=== PATIENT | male | born 1955 | race Caucasian/White ===

== ENCOUNTER 2018-07-06 06:51 | Day surgery (SDC) | payer OTHER ==
[~2018-07-06] VITALS: Ht 167.6 cm; Wt 121.0 kg
[~2018-07-06 06:51] MED LIST: /HCTZ25TA PO; /METO25TAB GT; AMLO5TAB6 PO; ATOR80TA59 PO; BUSP5TA PO; CLON0.2T PO; DOCU10ELUD PO; EC-881TA PO; HYDR25TAB PO; LABE10TAB PO; LISI-538 PO; LISI40TA PO; METO100T5 PO; NITR0.4D SL; NITR0.4S14 SL; NS 1,000 ML IV ONE; PANT40TA3 PO; TRAM50TA2 PO; TYLE325T5 PO; ZEST20TA8 PO
[2018-07-06] MEDS ORDERED: PROPOFOL 200 MG/20 ML VIAL As Ordered ONE (08:19)
[2018-07-06] MEDS ORDERED: LIDOCAINE 2% INJ 100 MG/5 ML SDV (FOR ANES.) As Ordered ONE (08:19)
--- NOTE | 2018-07-06 08:50 | ROOR ---
Patient Name: Geronimo Wilson Procedure Date: 07/06/2018 8:29 AM Date of : 1955 Age: 63 Room: [facility] Gender: Male Note Status: Finalized Procedure: Colonoscopy Indications: Screening for colorectal malignant neoplasm Providers: DO Junito Coffman MD: [facility], Admin. Requesting Provider: Medicines: Propofol per Anesthesia Complications: No immediate complications. Procedure: Pre-Anesthesia Assessment: - Prior to the procedure, a History and Physical was performed, and patient medications and allergies were reviewed. The patient is competent. The risks and benefits of the procedure and the sedation options and risks were discussed with the patient. All questions were answered and informed consent was obtained. Patient identification and proposed procedure were verified by the physician, the nurse, the clasp machine operator and the certified technician specialist in the endoscopy suite. Mental Status Examination: alert and oriented. Airway Examination: normal oropharyngeal airway and neck mobility. Respiratory Examination: clear to auscultation. CV Examination: normal. Prophylactic Antibiotics: The patient does not require prophylactic antibiotics. Prior Anticoagulants: The patient has taken no previous anticoagulant or antiplatelet agents. ASA Grade Assessment: II - A patient with mild systemic disease. After reviewing the risks and benefits, the patient was deemed in satisfactory condition to undergo the procedure. The anesthesia plan was to use monitored anesthesia care (MAC). Immediately prior to administration of medications, the patient was re-assessed for adequacy to receive sedatives. The heart rate, respiratory rate, oxygen saturations, blood pressure, adequacy of pulmonary ventilation, and response to care were monitored throughout the procedure. The physical status of the patient was re-assessed after the procedure. The Colonoscope was introduced through the anus and advanced to the cecum, identified by appendiceal orifice and ileocecal valve. The colonoscopy was performed without difficulty. The patient tolerated the procedure well. Findings: The perianal exam findings include non-thrombosed internal hemorrhoids and internal hemorrhoids that prolapse with straining, but spontaneously regress to the resting position (Grade II). A less than 5 mm polyp was found in the sigmoid colon. The polyp was hyperplastic. The polyp was removed with a jumbo cold forceps. Resection and retrieval were complete. Estimated blood loss was minimal. A 17 mm polyp was found in the sigmoid colon. The polyp was semi-pedunculated. The polyp was removed with a hot snare. Resection and retrieval were complete. Estimated blood loss was minimal. The exam was otherwise without abnormality on direct and retroflexion views. Impression: - Non-thrombosed internal hemorrhoids and internal hemorrhoids that prolapse with straining, but spontaneously regress to the resting position (Grade II) found on perianal exam. - One less than 5 mm polyp in the sigmoid colon, removed with a jumbo cold forceps. Resected and retrieved. - One 17 mm polyp in the sigmoid colon, removed with a hot snare. Resected and retrieved. - The examination was otherwise normal on direct and retroflexion views. Recommendation: - Patient has a contact number available for emergencies. The signs and symptoms of potential delayed complications were discussed with the patient. Return to normal activities tomorrow. Written discharge instructions were provided to the patient. - Repeat colonoscopy in 5-10 years for surveillance based on pathology results. - Return to my office PRN. - Telephone my office for pathology results in 1 week. Yemi Reeder DO 07/06/2018 8:49:30 AM This report has been signed electronically. Number of Addenda: 0 Note Initiated On: 07/06/2018 8:29 AM Estimated Blood Loss: Estimated blood loss was minimal.
[2018-07-06 09:14] VITALS: BP 188/87
== END 2018-07-06 09:23 | disposition home or self-care (01) ==
LOC: M OPP 06:51
PROVIDERS: ATTEND Surgery
DX: Z12.11 Encounter for screening for malignant neoplasm of colon (principal); K64.1 Second degree hemorrhoids; D12.5 Benign neoplasm of sigmoid colon; I10 Essential (primary) hypertension; E11.9 Type 2 diabetes mellitus without complications; J44.9 Chronic obstructive pulmonary disease, unspecified; G47.30 Sleep apnea, unspecified; Z79.899 Other long term (current) drug therapy; Z79.891 Long term (current) use of opiate analgesic; Z87.891 Personal history of nicotine dependence

== ENCOUNTER 2018-11-22 18:27 | Emergency (ER) | payer OTHER ==
[~2018-11-22] VITALS: Ht 165.1 cm; Wt 120.5 kg
[~2018-11-22 18:27] MED LIST changes: -/HCTZ25TA PO; -/METO25TAB GT; -DOCU10ELUD PO; +DOCU5LIQ PO; +HYDR-3644 PO; +METO1TAB87 GT; -NS 1,000 ML IV ONE
[2018-11-22] MEDS ORDERED: NITROGLYCERIN 0.4 MG SUBL TABLET SL PRN (18:45)
[2018-11-22] MEDS ORDERED: GI COCKTAIL 50ML BTL(HYOSCYAMINE/MAALOX/LIDOCAINE VISCOUS)(1:3:1) PO ONE (18:45)
[2018-11-22] MEDS ORDERED: NAPR500T6 PO (18:54)
[2018-11-22 19:07] LABS: BASO # 0.1 10^3/uL (0.0-0.2); BASO % 0.7 % (0.0-1.0); EOS # 0.4 10^3/uL (0.0-0.50); EOS % 4.4 % (0.0-3.0); HEMOGLOBIN 15.7 g/dl (13.5-17.5); LYMPH # 1.7 10^3/uL (1.5-4.5); LYMPH % 19.6 % (24.0-44.0); MEAN CORPUSCULAR HEMOGLOBIN 29.6 pg (27.0-33.0); MEAN CORPUSCULAR HGB CONC 32.7 g/dl (32.0-36.5); MEAN CORPUSCULAR VOLUME 90.4 fl (80.0-96.0); MONO # 1.1 10^3/uL (0.0-0.8); MONO % 12.3 % (0.0-5.0); NEUTROPHILS # 5.6 10^3/uL (1.8-7.7); NEUTROPHILS % 62.5 % (36.0-66.0); PLATELET COUNT, AUTOMATED 173 10^3/uL (150-450); RED BLOOD COUNT 5.31 10^6/uL (4.30-6.10); WHITE BLOOD COUNT 8.9 10^3/uL (4.0-10.0)
--- NOTE | 2018-11-22 19:14 | REP ---
Clinical: Acute chest pain . Comparison: 03/01/2014 . Findings: The mediastinum and cardiac silhouette are stable and within normal limits for portable technique. The lung manzano are clear without acute consolidation, effusion, or pneumothorax. Skeletal structures are intact. Impression: No acute cardiopulmonary process appreciated. Electronically Signed by Holger Becker MD 11/22/2018 07:06 P
[2018-11-22 19:37] LABS: ALBUMIN 3.9 GM/DL (3.2-5.2); ALT/SGPT 29 U/L (12-78); BILIRUBIN,DIRECT 0.1 MG/DL (0.0-0.2); BILIRUBIN,TOTAL 0.5 MG/DL (0.2-1.0); BLOOD UREA NITROGEN 19 MG/DL (7-18); CARBON DIOXIDE LEVEL 28 MEQ/L (21-32); CHLORIDE LEVEL 104 MEQ/L (98-107); CPK CREATINE PHOSPHOKINASE 189 U/L (39-308); CREATININE FOR GFR 0.99 MG/DL (0.70-1.30); GLOMERULAR FILTRATION RATE > 60.0 (>49); GLUCOSE, FASTING 113 MG/DL (70-100); MB/CK RELATIVE INDEX 2.28 (< OR =4); POTASSIUM SERUM 3.8 MEQ/L (3.5-5.1); SODIUM LEVEL 139 MEQ/L (136-145); TOTAL PROTEIN 6.7 GM/DL (6.4-8.2); TROPONIN I 0.26 NG/ML (< 0.10)
[2018-11-22 19:38] LABS: LIPASE 93 U/L (73-393); NT-PRO BNP 191 PG/ML (<125)
[2018-11-22] MEDS ORDERED: HEPARIN DRIP 25,000 UNITS in APPROPRIATE DILUENT 1 EA IV SCH (20:10)
[2018-11-22] MEDS ORDERED: CLOPIDOGREL 300 MG TAB (PLAVIX) PO ONE (20:15)
[2018-11-22] MEDS ORDERED: HEPARIN SOD (PORCINE) 5000 UNITS/ML VIAL IV ONE (20:15)
[2018-11-22] MEDS ORDERED: ASPIRIN 81 MG CHEW TABLET PO ONE (20:15)
[2018-11-22] MEDS ORDERED: NITROGLYCERIN 2% OINT 1 GM *U/D* PKT TOP ONE (20:30)
[2018-11-22 22:05] LABS: INR 1.44; PROTHROMBIN TIME 17.8 SECONDS (12.1-14.4)
[2018-11-22 22:30] VITALS: BP 125/69
[2018-11-22 22:45] LABS: PARTIAL THROMBOPLASTIN TIME > 240.0 SECONDS (25.4-37.6)
--- NOTE | 2018-11-23 19:28 | ECGEPIP ---
[facility] - ED Test Date: 2018-11-22 Pat Name: COSME BUSTOS Department: Room: - Gender: Male [employer]: : 1955 Requested By: Lyubov Lala Order Number: [id number] Reading MD: Irvin Simon Measurements Intervals [place] Rate: 61 P: 34 MA: 201 QRS: 75 QRSD: 150 T: 21 QT: 480 QTc: 485 Interpretive Statements SINUS RHYTHM INTRAVENTRICULAR CONDUCTION DELAY prolonged QTc Tremor artifact Comparison tracing not on file Electronically Signed on 11-23-2018 19:28:30 EDT by Irvin Simon
== END 2018-11-22 23:08 | disposition short-term general hospital (02) ==
LOC: M ED 18:27 → EDBD 18:27 → M ED 23:08
DX: I21.4 Non-ST elevation (NSTEMI) myocardial infarction (principal); I10 Essential (primary) hypertension; Z79.899 Other long term (current) drug therapy; Z88.8 Allergy status to other drugs, medicaments and biological substances

== ENCOUNTER 2019-06-13 15:41 | Emergency (ER) | payer OTHER ==
[~2019-06-13] VITALS: Ht 167.6 cm; Wt 118.2 kg
[~2019-06-13 15:41] MED LIST changes: +NAPR500T6 PO
[2019-06-13] MEDS ORDERED: LABETALOL HCL 100 MG/20 ML VIAL IV STA (16:28)
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
[2019-06-13] MEDS ORDERED: MORPHINE 2 MG/ML 1ML VIAL (J2270) IV ONE (16:30)
[2019-06-13] MEDS ORDERED: NS 1,000 ML IV ONE (16:30)
[2019-06-13 16:52] VITALS: BP 187/112
[2019-06-13 17:02] LABS: HEMATOCRIT 49.2 % (42.0-52.0); HEMOGLOBIN 16.1 g/dl (13.5-17.5); MEAN CORPUSCULAR HEMOGLOBIN 29.4 pg (27.0-33.0); MEAN CORPUSCULAR HGB CONC 32.7 g/dl (32.0-36.5); MEAN CORPUSCULAR VOLUME 89.8 fl (80.0-96.0); PLATELET COUNT, AUTOMATED 152 10^3/uL (150-450); RED BLOOD COUNT 5.48 10^6/uL (4.30-6.10); WHITE BLOOD COUNT 8.8 10^3/uL (4.0-10.0)
[2019-06-13 17:46] LABS: BLOOD UREA NITROGEN 24 MG/DL (7-18); CALCIUM LEVEL 9.4 MG/DL (8.8-10.2); CARBON DIOXIDE LEVEL 30 MEQ/L (21-32); CHLORIDE LEVEL 105 MEQ/L (98-107); GLOMERULAR FILTRATION RATE > 60.0 (>49); GLUCOSE, FASTING 94 MG/DL (70-100); POTASSIUM SERUM 4.7 MEQ/L (3.5-5.1); SODIUM LEVEL 142 MEQ/L (136-145)
[2019-06-13] MEDS ORDERED: ISOVUE-370 76% 100ML VIAL (Q9967) As Ordered ONE (17:48)
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
[2019-06-13] MEDS ORDERED: NAPR-837 PO (19:07)
[2019-06-13 19:24] VITALS: BP 184/76
--- NOTE | 2019-06-14 08:07 | ECGEPIP ---
[facility] - ED Test Date: 2019-06-13 Pat Name: COSME BUSTOS Department: Room: - Gender: Male Meeting Facilitator: [facility] : 1955 Requested By: Lyubov Lala Order Number: [id number] Reading MD: Lyubov Lala Measurements Intervals [place] Rate: 105 P: 29 OR: 183 QRS: 70 QRSD: 146 T: -50 QT: 433 QTc: 573 Interpretive Statements SINUS TACHYCARDIA INTRAVENTRICULAR CONDUCTION DELAY PROLONGED QTC INCREASED RATE 11/22/18 Electronically Signed on 06-14-2019 8:07:07 EST by Lyubov Lala
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
== END 2019-06-13 19:28 | disposition home or self-care (01) ==
LOC: M ED 15:41 → EDBD 15:41 → M ED 19:28
DX: T14.8XXA Other injury of unspecified body region, initial encounter (principal); V49.49XA Driver injured in collision with other motor vehicles in traffic accident, initial encounter; Y92.410 Unspecified street and highway as the place of occurrence of the external cause; E27.9 Disorder of adrenal gland, unspecified; Z79.899 Other long term (current) drug therapy
CPT/HCPCS: 36415; 70450; 71260; 80048; 85027; 93005; 96374; 96375; 99284; J2270; Q9967

== ENCOUNTER 2022-11-16 12:17 | Emergency (ER) | payer MEDICARE, OTHER ==
[~2022-11-16] VITALS: Ht 167.6 cm; Wt 126.5 kg
[~2022-11-16 12:17] MED LIST changes: +AMLO1TAB24 PO; -AMLO5TAB6 PO; +HYDR-3490 PO; -HYDR25TAB PO; -LISI-538 PO; +LISI20TA33 PO; -LISI40TA PO; +LISI40TA4 PO; +NAPR-837 PO; +PANT40TA29 PO; -PANT40TA3 PO
[2022-11-16] MEDS ORDERED: GI COCKTAIL 50ML BTL(HYOSCYAMINE/MAALOX/LIDOCAINE VISCOUS)(1:3:1) PO ONE (13:20)
[2022-11-16] MEDS ORDERED: ASPIRIN 81MG CHEW TABLET PO ONE (13:20)
[2022-11-16] MEDS ORDERED: ISOVUE-370 76% 100ML VIAL As Ordered ONE (13:40)
[2022-11-16 13:52] LABS: BASO % 0.4 % (0.0-1.0); EOS # 0.1 10^3/uL (0.0-0.5); EOS % 1.9 % (0.0-3.0); HEMOGLOBIN 15.6 g/dl (13.5-17.5); LYMPH % 12.6 % (24.0-44.0); MEAN CORPUSCULAR HEMOGLOBIN 29.1 pg (27.0-33.0); MEAN CORPUSCULAR HGB CONC 32.5 g/dl (32.0-36.5); MEAN CORPUSCULAR VOLUME 89.6 fl (80.0-96.0); MONO # 0.7 10^3/uL (0.0-0.8); MONO % 9.7 % (2.0-8.0); NEUTROPHILS # 5.7 10^3/uL (1.5-8.5); NEUTROPHILS % 75.1 % (36.0-66.0); PLATELET COUNT, AUTOMATED 158 10^3/uL (150-450); RED BLOOD COUNT 5.36 10^6/uL (4.30-6.10); WHITE BLOOD COUNT 7.6 10^3/uL (4.0-10.0)
[2022-11-16 14:05] LABS: INR 1.14; PARTIAL THROMBOPLASTIN TIME 31.2 SECONDS (24.8-34.2); PROTHROMBIN TIME 14.8 SECONDS (12.5-14.5)
[2022-11-16 14:17] LABS: BLOOD UREA NITROGEN 17 MG/DL (9-23); CALCIUM LEVEL 9.2 MG/DL (8.3-10.6); CARBON DIOXIDE LEVEL 29 MMOL/L (20-31); CHLORIDE LEVEL 104 MMOL/L (98-107); CREATININE FOR GFR 1.02 MG/DL (0.70-1.30); GLOMERULAR FILTRATION RATE > 60.0 (>49); GLUCOSE, FASTING 115 MG/DL (74-106); MAGNESIUM LEVEL 1.7 MG/DL (1.8-2.4); POTASSIUM SERUM 4.6 MMOL/L (3.5-5.1); SODIUM LEVEL 141 MMOL/L (136-145)
[2022-11-16 14:18] LABS: ALBUMIN 3.9 G/DL (3.2-5.2); BILIRUBIN,DIRECT 0.2 MG/DL (<0.4); BILIRUBIN,TOTAL 0.6 MG/DL (0.3-1.2); CK-MB VALUE MASS 4.6 NG/ML (<3.6); TOTAL PROTEIN 6.8 G/DL (5.7-8.2)
[2022-11-16 14:22] LABS: FREE T4 1.17 NG/DL (0.89-1.76); THYROID STIMULATING HORMONE 2.125 uIU/ML (0.55-4.78)
[2022-11-16 14:24] LABS: CPK CREATINE PHOSPHOKINASE 260 U/L (46-171); MB/CK RELATIVE INDEX 1.76 (< OR =4)
[2022-11-16] MEDS ORDERED: NITROGLYCERIN 0.4MG SUBL TABLET SL PRN (14:30)
[2022-11-16 15:07] LABS: CK-MB VALUE MASS 5.1 NG/ML (<3.6)
[2022-11-16 15:11] LABS: MB/CK RELATIVE INDEX 2.08 (< OR =4)
[2022-11-16] MEDS ORDERED: HEPARIN SOD (PORCINE) 5000UNITS/ML 1ML VIAL/SYRINGE IV ONE (17:05)
[2022-11-16] MEDS ORDERED: HEPARIN DRIP 25,000 UNITS in IV 1 EA IV SCH ×2 (17:05→19:15)
[2022-11-16] MEDS ORDERED: NITROGLYCERIN 2% OINT 1 GM *U/D* PKT TOP ONE (17:05)
[2022-11-16 18:07] LABS: CK-MB VALUE MASS 4.7 NG/ML (<3.6)
[2022-11-16 18:12] LABS: MB/CK RELATIVE INDEX 2.08 (< OR =4)
[2022-11-16] MEDS ORDERED: METOPROLOL TARTRATE 100MG TAB PO ONE (19:15)
[2022-11-16] MEDS ORDERED: HEPARIN SOD (PORCINE) 5000UNITS/ML 1ML VIAL/SYRINGE IV PRN (19:15)
[2022-11-16 19:44] VITALS: BP 155/86
[2022-11-16] MEDS ORDERED: PANTOPRAZOLE 40MG VIAL IV SCH (21:00)
[2022-11-16] MEDS ORDERED: NS 1,000 ML IV SCH (21:05)
[2022-11-16] MEDS ORDERED: HYDROMORPHONE HCL 0.5 MG/ 0.5 ML SYRINGE IV PRN (21:05)
[2022-11-16] MEDS ORDERED: hydrALAZINE 20MG/ML 1ML VIAL IV PRN (21:10)
[2022-11-16] MEDS ORDERED: lisinopriL 40MG TAB PO ONE (21:20)
[2022-11-17 03:00] VITALS: BP 126/74
== END 2022-11-17 06:43 | disposition short-term general hospital (02) ==
LOC: M ED 12:17
DX: R79.89 Other specified abnormal findings of blood chemistry (principal); I44.1 Atrioventricular block, second degree; I10 Essential (primary) hypertension; E78.5 Hyperlipidemia, unspecified; J44.9 Chronic obstructive pulmonary disease, unspecified; K21.9 Gastro-esophageal reflux disease without esophagitis; Z87.891 Personal history of nicotine dependence; Z88.8 Allergy status to other drugs, medicaments and biological substances; Z79.899 Other long term (current) drug therapy
CPT/HCPCS: 71045; 71275; 74174; 80047; 80048; 80076; 81001; 82550; 82553; 83605; 83690; 83735; 83880; 84439; 84443; 84484; 85025; 85610; 85730; 87635; 93005; 93041; 94760; 96365; 96366; 96367; 96375; 99285; C9113; Q9967

== ENCOUNTER 2023-06-11 14:42 | Emergency (ER) | payer OTHER ==
[~2023-06-11] VITALS: Ht 167.6 cm; Wt 119.1 kg
[2023-06-11 14:53] VITALS: TEMP 97.4
[2023-06-11] MEDS ORDERED: METO200T28 PO (15:02)
[2023-06-11] MEDS ORDERED: ASPI81TA26 (15:02)
[2023-06-11] MEDS ORDERED: TAMS1CAP17 PO (15:02)
[2023-06-11] MEDS ORDERED: AMLO1TAB25 PO (15:02)
[2023-06-11] MEDS ORDERED: PRAZ2CAP PO (15:02)
[2023-06-11] MEDS ORDERED: JARD1TAB3 PO (15:02)
[2023-06-11 15:27] LABS: BASO % 0.4 % (0.0-1.0); EOS # 0.1 10^3/uL (0.0-0.5); EOS % 1.8 % (0.0-3.0); HEMOGLOBIN 14.4 g/dl (13.5-17.5); LYMPH # 1.2 10^3/uL (1.5-5.0); LYMPH % 14.6 % (24.0-44.0); MEAN CORPUSCULAR HEMOGLOBIN 28.9 pg (27.0-33.0); MEAN CORPUSCULAR VOLUME 90.4 fl (80.0-96.0); MONO # 0.9 10^3/uL (0.0-0.8); MONO % 11.2 % (2.0-8.0); NEUTROPHILS # 5.7 10^3/uL (1.5-8.5); NEUTROPHILS % 71.7 % (36.0-66.0); PLATELET COUNT, AUTOMATED 170 10^3/uL (150-450); RED BLOOD COUNT 4.98 10^6/uL (4.30-6.10); WHITE BLOOD COUNT 7.9 10^3/uL (4.0-10.0)
[2023-06-11 15:48] LABS: BLOOD UREA NITROGEN 24 MG/DL (9-23); CALCIUM LEVEL 8.7 MG/DL (8.3-10.6); CARBON DIOXIDE LEVEL 31 MMOL/L (20-31); CHLORIDE LEVEL 100 MMOL/L (98-107); GLOMERULAR FILTRATION RATE > 60.0 (>42); GLUCOSE, FASTING 101 MG/DL (74-106); MAGNESIUM LEVEL 2.2 MG/DL (1.8-2.4); POTASSIUM SERUM 3.9 MMOL/L (3.5-5.1); SODIUM LEVEL 137 MMOL/L (136-145)
[2023-06-11 17:49] VITALS: BP 118/55; O2SAT 97
== END 2023-06-11 17:51 | disposition home or self-care (01) ==
LOC: M ED 14:42
DX: I95.1 Orthostatic hypotension (principal); I10 Essential (primary) hypertension; E78.5 Hyperlipidemia, unspecified; J44.9 Chronic obstructive pulmonary disease, unspecified; K21.9 Gastro-esophageal reflux disease without esophagitis; Z87.891 Personal history of nicotine dependence; Z79.82 Long term (current) use of aspirin; Z79.899 Other long term (current) drug therapy; Z88.8 Allergy status to other drugs, medicaments and biological substances

== ENCOUNTER 2023-12-12 22:00 | Emergency (ER) | payer OTHER ==
[~2023-12-12] VITALS: Ht 167.6 cm; Wt 114.5 kg
[~2023-12-12 22:00] MED LIST changes: +AMLO1TAB25 PO; +ASPI81TA26; +JARD1TAB3 PO; +METO200T15 PO; +PRAZ2CAP PO; +TAMS1CAP17 PO
[2023-12-12 22:49] LABS: BASO % 0.5 % (0.0-1.0); EOS # 0.4 10^3/uL (0.0-0.5); EOS % 4.2 % (0.0-3.0); HEMATOCRIT 45.9 % (42.0-52.0); HEMOGLOBIN 14.6 g/dl (13.5-17.5); LYMPH # 1.2 10^3/uL (1.5-5.0); LYMPH % 14.9 % (24.0-44.0); MEAN CORPUSCULAR HEMOGLOBIN 29.3 pg (27.0-33.0); MEAN CORPUSCULAR HGB CONC 31.8 g/dl (32.0-36.5); MONO # 0.8 10^3/uL (0.0-0.8); NEUTROPHILS # 5.8 10^3/uL (1.5-8.5); PLATELET COUNT, AUTOMATED 138 10^3/uL (150-450); RED BLOOD COUNT 4.99 10^6/uL (4.30-6.10); WHITE BLOOD COUNT 8.2 10^3/uL (4.0-10.0)
[2023-12-12 23:00] LABS: INR 3.08; PARTIAL THROMBOPLASTIN TIME 50.8 SECONDS (24.8-34.2); PROTHROMBIN TIME 30.7 SECONDS (12.5-14.5)
[2023-12-12 23:15] LABS: BLOOD UREA NITROGEN 30 MG/DL (9-23); CALCIUM LEVEL 9.4 MG/DL (8.3-10.6); CARBON DIOXIDE LEVEL 32 MMOL/L (20-31); CHLORIDE LEVEL 105 MMOL/L (98-107); CREATININE FOR GFR 0.99 MG/DL (0.70-1.30); GLOMERULAR FILTRATION RATE > 60.0 (>42); GLUCOSE, FASTING 147 MG/DL (74-106); POTASSIUM SERUM 3.9 MMOL/L (3.5-5.1); SODIUM LEVEL 142 MMOL/L (136-145)
[2023-12-13 07:20] VITALS: BP 146/65; O2SAT 99
[2023-12-13 07:41] VITALS: TEMP 97.4
== END 2023-12-13 07:42 | disposition home or self-care (01) ==
LOC: M ED 22:00
DX: R31.0 Gross hematuria (principal); J44.9 Chronic obstructive pulmonary disease, unspecified; I48.91 Unspecified atrial fibrillation; Z88.8 Allergy status to other drugs, medicaments and biological substances; Z79.1 Long term (current) use of non-steroidal anti-inflammatories (NSAID); Z79.899 Other long term (current) drug therapy

== ENCOUNTER → 2024-08-22 | Outpatient (CLI) | payer OTHER ==
[~2024-08-22] MED LIST changes: +NAPR-1405 PO; -NAPR500T6 PO
== END ==
LOC: M RAD 16:31
PROVIDERS: ATTEND Psychiatry & Neurology Neurology
DX: G25.2 Other specified forms of tremor (principal); I63.031 Cerebral infarction due to thrombosis of right carotid artery